=== PATIENT | female | born 1965 | race African-American/Black ===

== ENCOUNTER 2019-08-15 09:01 | Outpatient (CLI) | payer BC ==
--- NOTE | 2019-08-15 10:24 | Mammography Report ---
BILATERAL DIGITAL SCREENING MAMMOGRAM WITH CAD HISTORY: SCREENING MAMMOGRAM TECHNIQUE: Routine digital mammographic imaging performed. This examination was interpreted with xuan stark benefit of Computer-aided Detection analysis. COMPARISON: 04/12/2016, 01/30/2015, 01/21/2014, 03/01/2013. FINDINGS: Breast Density: heterogeneously dense breast parenchymal pattern which somewhat lessens the sensitivi ty of the evaluation. Digital CC and MLO views demonstrate an asymmetry in the right superior breast. This is seen on the M LO view only at middle depth. No suspicious findings within the left breast. IMPRESSION: Right superior breast asymmetry for which additional mammographic views and possible ultrasound is re commended. BIRADS 0-Incomplete: Needs additional imaging evaluation NOTE: WE WILL RECALL THE PATIENT FOR THIS ADDITIONAL EVALUATION. FURTHER INFORMATION: According to the [employer], yearly mammograms are recommend ed starting at age 40 and continuing as long as a woman is in good health. Clinical Breast Exams shou ld be part of a periodic health exam-about every 3 years for women in their 20s and 30s and every yea r for women 40 and over. Breast self exam is an option for women starting in their 20s. Any breast ch brisa noted on a breast self exam should be reported promptly to the patient's healthcare provider. Br east MRI is recommended for women with an approximately 20-25% or greater lifetime risk of breast can cer, including women with a strong family history of breast or ovarian cancer and women who have been treated for Hodgkin's disease. A negative Mammography report should not discourage follow up or biopsy of a clinically significant f inding and/or abnormality. Dense breast tissue may obscure small neoplasms. The patient will be entered into a reminder system with a target due date for the next screening mamm ogram. Signer Name: Lionel Cmapbell MD Signed: 08/15/2019 10:20 AM Workstation Name: [id number]
== END 2019-08-15 09:02 | disposition home or self-care (01) ==
LOC: SPVWC 09:01
PROVIDERS: ATTEND Internal Medicine
DX: Z12.31 Encounter for screening mammogram for malignant neoplasm of breast (principal); N64.89 Other specified disorders of breast
CPT/HCPCS: 77067

== ENCOUNTER 2019-08-27 15:31 | Outpatient (CLI) | payer BC ==
--- NOTE | 2019-08-30 10:57 | Mammography Report ---
DIGITAL DIAGNOSTIC MAMMOGRAM WITH CAD, 08/27/2019 INDICATION: Recalled for asymmetry. DIAGNOSTIC TECHNIQUE: Digital right mammographic imaging was performed. Spot compression views were obtained. This examination was interpreted with the benefit of Computer-aided Detection analysis. COMPARISON: 08/15/2019 FINDINGS: Breast Density: The breasts are heterogeneously dense, which may obscure small masses. Lateral and spot compression views were performed and are negative. Satisfactory effacement of asymme try. IMPRESSION: No mammographic evidence of malignancy. Follow up recommendation: Routine yearly BI-RADS Category 1: Negative. A "normal" or negative report should not discourage follow up or biopsy of a clinically significant f inding. A written summary of these findings will be mailed to the patient. The patient will be entered into a mammography reporting system which will generate a reminder letter for the patient's next appointmen t at the appropriate interval. According to the [employer], yearly mammograms are recommended starting at age 40 and continuing as long as a woman is in good health. Breast MRI is recommended for women with an alicia roximately 20-25% or greater lifetime risk of breast cancer, including women with a strong family his tory of breast or ovarian cancer and women who have been treated for Hodgkin's disease. Signer Name: Avery Patel MD Signed: 08/27/2019 4:03 PM Workstation Name: [id number]
== END 2019-08-27 15:32 | disposition home or self-care (01) ==
LOC: SPVWC 15:31
PROVIDERS: ATTEND Internal Medicine
DX: R92.2 Inconclusive mammogram (principal)